=== PATIENT | male | born 1990 ===

== ENCOUNTER 2017-04-01 14:19 | Outpatient (CLI) | payer OTHER ==
--- NOTE | 2017-04-01 15:06 | XRay Report ---
XRAY LEFT SHOULDER THREE VIEWS: 04/01/17 14:19:00 CLINICAL: Left shoulder pain. FINDINGS: No fracture or dislocation. Normal glenohumeral joint. Normal AC joint. The soft tissues are normal. IMPRESSION: Normal study.
== END 2017-04-01 14:20 | disposition home or self-care (01) ==
LOC: SPVIMAG 14:19
PROVIDERS: ATTEND Internal Medicine
DX: M25.512 Pain in left shoulder (principal)